=== PATIENT | female | born 1955 | race Caucasian/White ===

== ENCOUNTER 2018-11-27 06:21 | Inpatient (IN) | payer BC ==
[~2018-11-27] VITALS: Ht 157.5 cm; Wt 80.0 kg
[2018-11-27] VITALS (23 sets, daily range): BP systolic 117–186; BP diastolic 55–91; PULSE 72–114; RESP 10–21; Ht 157.5 cm; Wt 80.0 kg
[2018-11-27] MEDS ORDERED: SEVOFLURANE 15 MIN ONE (07:00)
[2018-11-27] MEDS ORDERED: LIDOCAINE 0.5% (MDV) 50 ML INJ ONE (07:07)
[2018-11-27] MEDS ORDERED: THROMBIN (BOVINE) 5,000 UNIT VIAL TP ONE (07:07)
[2018-11-27] MEDS ORDERED: BUPIVACAINE 0.5%/EPI (SDV) 30 ML INJ ONE (07:07)
[2018-11-27] MEDS ORDERED: POLYMYXIN/BACITRACIN 1L IRRIG ONE (07:07)
--- NOTE | 2018-11-27 07:23 | PREAC ---
Date/Time of Note Date/Time of Note DATE: 11/27/18 TIME: 07:20 Anesthesia Eval and Record Evaluation Time Pre-Procedure Interview DATE: 11/27/18 TIME: 07:20 Age 63 Sex female NPO: 8 hrs Preoperative diagnosis spondylolisthesis and spinal stenosis L4-L5, L5-S1 Planned procedure L4-L5, L5-S1 TLIF Past Medical History Past Medical History: Includes Cardio: HTN Endo: Diabetes Psych: Anxiety Infection(s): Hep C Surgery & Anesthesia Issues No known issue Meds Anticoagulation: No Beta Dwight within 24 hr: No Reason Beta Dwight not given: Pt. not on B-Dwight Meds reviewed: Yes Allergies Allergies Reviewed: Yes Labs/Studies Labs Reviewed: Reviewed by anesthesiologist test: N/A Studies: ECG (normal sinus rhythm), CXR (no acute disease ) Pre-procedure Exam Airway: Adequate mouth opening, Adequate thyromental dist Mallampati: Mallampati II Teeth: Abnormal (upper partials) Lung: Normal Heart: Normal ASA Physical Status ASA physical status: 2 Emergency: None Planned Anesthetic General/MAC: ETT Planned Pain Management Parenteral pain med Pre-operative Attestations Prior to commencing anesthesia and surgery, the patient was re-evaluated, there was verification of: *The patient's identity *The results of appropriate recent lab work and preoperative vital signs *The above evaluation not changing prior to induction *Anesthetic plan, risk benefits, alternative and complications discussed with patient/family; questions answered; patient/family understands, accepts and wishes to proceed. NICKO NICOLAS MD Nov 27, 2018 07:23
[2018-11-27] MEDS ORDERED: LOSA50TA2 PO (07:35)
[2018-11-27] MEDS ORDERED: CLON-379 PO (07:36)
[2018-11-27] MEDS ORDERED: GABA300C16 PO (07:38)
[2018-11-27] MEDS ORDERED: GLYB5TAB3 PO (07:39)
[2018-11-27] MEDS ORDERED: TRAM50TA2 PO (07:41)
[2018-11-27] MEDS ORDERED: HYDR-4012 PO (07:42)
[2018-11-27] MEDS ORDERED: PROPOFOL 20 ML ONE (07:51)
[2018-11-27] MEDS ORDERED: ROCURONIUM 50 MG INJ ONE (07:51)
[2018-11-27] MEDS ORDERED: LIDOCAINE 2% (SDV) 5 ML INJ ONE (07:51)
[2018-11-27] MEDS ORDERED: MIDAZOLAM 1 MG/ML 2 ML INJ ONE (07:51)
[2018-11-27] MEDS ORDERED: SUCCINYLCHOLINE CHLORIDE 100 MG/5 ML SYG IV ONE (07:51)
--- NOTE | 2018-11-27 08:02 | HPN ---
Date/Time of Note Date/Time of Note DATE: 11/27/18 TIME: 08:01 Interval H&P Admission Note Pt. seen H&P reviewed: No system changes Intractable right lower Extremity radiating pain and numbness with weakness and Axial LBP. Patient's family at bedside including daughter and grandchildren. SONAL CALLOWAY MD Nov 27, 2018 08:02
[2018-11-27] MEDS ORDERED: CEFAZOLIN 1 GM INJ ONE (09:06)
[2018-11-27] MEDS ORDERED: ONDANSETRON 4 MG INJ ONE (09:07)
[2018-11-27] MEDS ORDERED: FAMOTIDINE 20 MG INJ ONE (09:07)
[2018-11-27] MEDS ORDERED: EPHEDrine 25 MG/5 ML SYG ONE (09:12)
[2018-11-27] MEDS ORDERED: HEMOSTATIC MATRIX/ THROMBIN 1 EA SYG ZFS ONE ×2 (09:53→15:50)
[2018-11-27] MEDS ORDERED: HYDROmorphONE 2 MG/ML SYG ONE (12:01)
[2018-11-27] MEDS ORDERED: GELATIN SIZE 100 SPONGE ONE (13:54)
[2018-11-27] MEDS ORDERED: NALOXONE (0.4 MG/ML) INJ IV PRN (15:30)
[2018-11-27] MEDS ORDERED: D5W-0.45 NACL + KCL 20 MEQ 1,000 ML IV SCH (15:30)
[2018-11-27] MEDS ORDERED: BISACODYL 10 MG SUPP PR PRN (15:30)
--- NOTE | 2018-11-27 15:44 | SIPON ---
Date/Time of Note Date/Time of Note DATE: 11/27/18 TIME: 15:43 Operative Report Preoperative Diagnosis L4-5 Grade II Spondylilisthesis, L4-5/L5-S1 DDD and foraminal stenosis Postoperative Diagnosis Same As above Operation/Procedure Performed MIS L4-5/L5-S1 TLIF Surgeon see signature line grants assistant None Anesthesia: general Estimated blood loss: 50 - 100 ml's (75cc) Transfusion Required none Specimen None Grafts/Implants See OP report Complications none SONAL CALLOWAY MD Nov 27, 2018 15:44
[2018-11-27] MEDS ORDERED: HYDROmorphONE 1 MG/5 ML IV SYRINGE IV ONE (15:45)
[2018-11-27] MEDS ORDERED: ONDANSETRON 4 MG INJ IV PRN (16:00)
[2018-11-27] MEDS ORDERED: FENTAnyl 50 MCG/ML VIAL IV PRN ×2 (16:00)
[2018-11-27] MEDS ORDERED: PROCHLORPERAZINE 10 MG INJ IV PRN (16:00)
[2018-11-27] MEDS ORDERED: MEPERIDINE 25 MG INJ IV PRN (16:00)
[2018-11-27] MEDS ORDERED: HYDROCODONE/APAP (10/325) TAB PO SCH (16:00)
[2018-11-27] MEDS ORDERED: ACETAMINOPHEN 1000MG/100ML IV 100 ML IVPB ONE ×2 (16:00)
[2018-11-27] MEDS: traMADol 50 MG TAB PO SCH ×2 (16:00→21:55)
[2018-11-27] MEDS ORDERED: LABETALOL HCL 20MG INJ IV PRN (16:00)
[2018-11-27] MEDS ORDERED: HYDROmorphONE 1 MG/ML SYG IV ONE (16:00)
[2018-11-27] MEDS ORDERED: hydrALAzine 20 MG INJ IV PRN (16:00)
[2018-11-27] MEDS ORDERED: DIPHENHYDRAMINE 50 MG INJ IV PRN (16:00)
[2018-11-27] MEDS ORDERED: HYDROmorphONE 1 MG/5 ML IV SYRINGE IV PRN ×3 (16:00)
[2018-11-27] MEDS ORDERED: HYDROmorphONE 1 MG/ML SYG ONE (16:01)
--- NOTE | 2018-11-27 16:02 | PAC ---
Date/Time of Note Date/Time of Note DATE: 11/27/18 TIME: 16:00 Post-Anesthesia Notes Post-Anesthesia Note Last documented vital signs Vital Signs Date Temp Pulse Resp B/P (MAP) Pulse Ox O2 O2 Flow FiO2 Time Delivery Rate 11/27/18 97.9 15:49 11/27/18 76 144/82 98 Room Air 07:28 (102) Activity: WNL Respiratory function: WNL Cardiovascular function: WNL Mental status: Baseline Pain reasonably controlled: Yes Hydration appropriate: Yes Nausea/Vomiting absent: Yes Comments BP: 136/89 HR: 98 RR: 15 T: 97.9 SaO2: 100% NICKO NICOLAS MD Nov 27, 2018 16:02
[2018-11-27] MEDS ORDERED: LORAZEPAM 2 MG INJ ONE (16:03)
[2018-11-27] MEDS: FENTAnyl 50 MCG/ML VIAL IV PRN ×2 (16:27→16:49)
[2018-11-27] MEDS ORDERED: GLUCOSE GEL 15 GRAM TUBE PO PRN ×2 (16:30)
[2018-11-27] MEDS ORDERED: LORAZEPAM 2 MG INJ IV PRN (16:30)
[2018-11-27] MEDS ORDERED: DEXTROSE 50% 50 ML SYRINGE IV PRN ×2 (16:30)
[2018-11-27] MEDS ORDERED: GLUCOSE GEL 15 GRAM TUBE BUCCAL PRN (16:30)
[2018-11-27] MEDS ORDERED: GLUCAGON 1 MG INJ IM PRN (16:30)
[2018-11-27] MEDS: CEFAZOLIN 1 GM/50 ML (PMX) 50 ML IVPB SCH (17:01)
[2018-11-27] MEDS: ACCU-CHEK XX SCH ×2 (17:25→21:00)
[2018-11-27] MEDS: HYDROmorphONE 0.5 MG/0.5 ML SYG IV PRN ×4 (18:00→23:03)
[2018-11-27] MEDS: OXYCODONE/ACETAMINOPHEN (10/325) TAB PO SCH ×2 (18:00→19:10)
[2018-11-27] MEDS: CYCLOBENZAPRINE 10 MG TAB PO PRN (20:12)
[2018-11-27] MEDS: GABAPENTIN 300 MG CAP PO SCH (20:12)
[2018-11-27] MEDS: DOCUSATE SODIUM 100 MG CAP PO SCH (20:13)
[2018-11-27] MEDS: ONDANSETRON 4 MG INJ IV PRN (21:56)
[2018-11-27] MEDS: INSULIN ASPART [NOVOLOG] 3 ML PEN SC SCH (22:00)
[2018-11-28] MEDS: OXYCODONE/ACETAMINOPHEN (10/325) TAB PO SCH ×5 (00:08→23:09)
[2018-11-28] MEDS: CEFAZOLIN 1 GM/50 ML (PMX) 50 ML IVPB SCH ×2 (00:08→08:46)
[2018-11-28 00:10] VITALS: BP 132/65; PULSE 94; RESP 17
[2018-11-28] MEDS: ACCU-CHEK XX SCH ×5 (00:35→20:52)
[2018-11-28] MEDS: HYDROmorphONE 0.5 MG/0.5 ML SYG IV PRN ×8 (01:46→18:50)
[2018-11-28 02:00] VITALS: BP 120/64; PULSE 99; RESP 19
[2018-11-28] MEDS: CYCLOBENZAPRINE 10 MG TAB PO PRN (03:06)
[2018-11-28] MEDS: ONDANSETRON 4 MG INJ IV PRN ×2 (04:08→12:19)
[2018-11-28] MEDS: traMADol 50 MG TAB PO SCH ×4 (04:08→20:26)
[2018-11-28 04:31] VITALS: BP 123/66; PULSE 91; RESP 17
[2018-11-28] MEDS: PANTOPRAZOLE 40 MG INJ IV SCH (06:05)
[2018-11-28 07:35] VITALS: BP 118/56; PULSE 87; RESP 17
[2018-11-28] MEDS: INSULIN ASPART [NOVOLOG] 3 ML PEN SC SCH ×4 (07:50→20:25)
[2018-11-28] MEDS: glyBURIDE 5 MG TAB PO SCH ×2 (08:44→17:49)
[2018-11-28] MEDS: DOCUSATE SODIUM 100 MG CAP PO SCH ×2 (08:44→20:25)
[2018-11-28] MEDS: GABAPENTIN 300 MG CAP PO SCH ×2 (08:45→20:25)
[2018-11-28] MEDS: LOSARTAN 50 MG TAB PO SCH (08:46)
--- NOTE | 2018-11-28 09:17 | PN ---
Date/Time of Note Date/Time of Note DATE: 11/28/18 TIME: 09:11 Subjective Chart was reviewed. Patient complains of moderate pain at the surgical site, right lower extremity numbness and weakness. The numbness was present prior to surgery. Afebrile vital signs are stable Neck supple no JVD Lungs are clear to auscultation bilaterally Cardiac is regular rate and rhythm Abdomen is soft nontender nondistended Extremities with no edema. SCDs are in place Right lower extremity with 4 out of 5 strength. Left lower extremity with normal strength. Objective Vitals Vital Signs Date Temp Pulse Resp B/P (MAP) Pulse Ox O2 O2 Flow FiO2 Time Delivery Rate 11/28/18 98.6 87 17 118/56 94 07:35 (76) 11/28/18 Nasal 04:31 Cannula 11/27/18 2.0 19:52 Intake and Output 11/27/18 11/27/18 11/28/18 1414:59 22:59 06:59 IntakeIntake Total 3100 ml 350 ml OutputOutput Total 300 ml 1000 ml BalanceBalance 2800 ml -650 ml Medications Medications Current Medications Influenza Virus Vaccine Quadrival (Fluzone) 0.5 ml ONCE ONCE IM* ; Start 11/29/18 at 10:00; Stop 11/29/18 at 10:01 Clonidine (Catapres) 0.1 mg Q8 PRN PO ELEVATED BLOOD PRESSURE; Start 11/27/18 at 15:30; Status UNV Gabapentin (Neurontin) 300 mg BID PO Last administered on 11/28/18at 08:45; Admin Dose 300 MG; Start 11/27/18 at 21:00 Glyburide (Micronase) 5 mg BID WITH MEALS PO Last administered on 11/28/18at 08:44; Admin Dose 5 MG; Start 11/28/18 at 07:50 Losartan Potassium (Cozaar) 50 mg DAILY PO Last administered on 11/28/18at 08:46; Admin Dose 50 MG; Start 11/28/18 at 09:00 Diagnostic Test (Pha) (Accu-Chek) 1 ea AC MEALS AND BEDTIME XX Last administered on 11/28/18at 08:40; Admin Dose 1 EA; Start 11/27/18 at 17:25 Tramadol HCl (Ultram) 100 mg Q6H PO Last administered on 11/28/18at 04:08; Admin Dose 100 MG; Start 11/27/18 at 16:00 Hydromorphone HCl (Dilaudid) 0.2 mg Q1H PRN IV .BREAKTHROUGH PAIN Last administered on 11/28/18at 07:57; Admin Dose 0.2 MG; Start 11/27/18 at 15:30 Ondansetron HCl (Zofran Inj) 4 mg Q6H PRN IV NAUSEA/VOMITING Last administered on 11/28/18at 04:08; Admin Dose 4 MG; Start 11/27/18 at 15:30 Bisacodyl (Dulcolax Supp) 10 mg DAILY PRN CO .CONSTIPATION; Start 11/27/18 at 15:30 Docusate Sodium (Colace) 100 mg BID PO Last administered on 11/28/18at 08:44; Admin Dose 100 MG; Start 11/27/18 at 21:00 Pantoprazole (Protonix Iv) 40 mg DAILY@06 IV Last administered on 11/28/18at 06:05; Admin Dose 40 MG; Start 11/28/18 at 06:00 Cyclobenzaprine HCl (Flexeril) 10 mg TID PRN PO .MUSCLE SPASMS Last administered on 11/28/18at 03:06; Admin Dose 10 MG; Start 11/27/18 at 15:30 Naloxone HCl (Narcan) 0.2 mg Q2M PRN IV .RR 8 BREATHS/MIN OR LESS; Start 11/27/18 at 15:30 Miscellaneous Information 1 ea NOTE XX ; Start 11/27/18 at 16:30 Glucose (Glutose) 15 gm Q15M PRN PO DECREASED GLUCOSE; Start 11/27/18 at 16:30 Glucose (Glutose) 22.5 gm Q15M PRN PO DECREASED GLUCOSE; Start 11/27/18 at 16:30 Dextrose (D50w Syringe) 25 ml Q15M PRN IV DECREASED GLUCOSE; Start 11/27/18 at 16:30 Dextrose (D50w Syringe) 50 ml Q15M PRN IV DECREASED GLUCOSE; Start 11/27/18 at 16:30 Glucagon (Glucagen) 1 mg Q15M PRN IM DECREASED GLUCOSE; Start 11/27/18 at 16:30 Glucose (Glutose) 15 gm Q15M PRN BUCCAL DECREASED GLUCOSE; Start 11/27/18 at 16:30 Oxycodone/ Acetaminophen (Endocet (10 325)) 2 tab Q6H PO Last administered on 11/28/18at 06:05; Admin Dose 2 TAB; Start 11/27/18 at 18:00 Diagnostic Test (Pha) (Accu-Chek) 1 02 XX ; Start 11/28/18 at 02:00 Insulin Aspart (Novolog Insulin Pen) NOVOLOG *MODERATE* ALGORITHM WITH MEALS BEDTIME SC ; Start 11/27/18 at 22:00 VTE Prophylaxis Risk score (from Ns)>0 risk: 2 SCD applied (from [facility]): Yes Lines/Catheters IV Catheter Type: Saline Lock Winslow in Place: Yes Cont'd winslow catheter reason: other (indicate) (Winslow will be removed) Assessment/Plan Assessment/Plan 63-year-old female status post L4-L5 and L5-S1 TLIF Type 2 diabetes mellitus Status post hip replacement Increase Dilaudid to 0.5 mg IV every 2 hours as needed Discontinue Winslow catheter Ambulate with physical therapy Neurosurgical follow-up Discharge planning in ARNALDO Bloom MD Nov 28, 2018 09:17
--- NOTE | 2018-11-28 12:28 | OPR ---
Date/Time of Note Date/Time of Note DATE: 11/28/18 TIME: 12:26 Operative Report Procedure Date: Nov 27, 2018 Preoperative Diagnosis Please see below. Postoperative Diagnosis Please see below. Operation/Procedure Performed Please see below. Surgeon see signature line Storage Engineer None Anesthesia Type: general Estimated Blood Loss: 50 - 100 ml's (75cc) Transfusion none Specimen None Grafts/Implants Please see below. Tubes/Drains None Complications none Pt Condition Post Procedure: stable Disposition: PACU Procedure Description Date of operation: 11/27/2018 Operating surgeon: Ran Calloway M.D. Preoperative diagnosis: 1. Grade 2 L4-5 spondylolisthesis 2. L4-5 and L5-S1 degenerative disc disease with neural foraminal Post operative diagnosis: 1. Grade 2 L4-5 spondylolisthesis 2. L4-5 and L5-S1 degenerative disc disease with neural foraminal Procedure(s) performed: 1. Minimally invasive right L4 and L5 decompressive hemilaminectomy (more laminectomy done than would be required for a simple transforaminal lumbar interbody arthrodesis) 2. Minimally invasive right total L4-5 and L5-S1 facetectomy and foraminotomies for transforaminal lumbar interbody arthrodesis 3. Placement of intravertebral cages at L4-5 and L5-S1 (Wensel Spine Verilift titanium 12 mm expandable to 13 mm height, 28 mm depth TLIF cages) 4. L4-S1 minimally invasive posterior instrumentation please for an (RTI [place] cannulated pedicle screws, 6.5 mm diameter at bilateral L4 and left L5, 7.5 mm diameter at bilateral S1 pedicles) 5. L4-S1 posterior arthrodesis 6. Bone marrow aspirate harvest 7. Morselized local autologous bone graft harvest 8. Morcellized allograft placement (demineralized bone matrix putty) 9. Intraoperative microscope with microdissection 10. Intraoperative fluoroscopy with professional interpretation 11. Intraoperative physiologic monitoring including SSEP, MEP, and EMG testing Indication for procedure: This is a 63-year-old female with chronic axial low back pain and radiating right lower extremity pain and numbness in the L4, L5 versus S1 distribution. The patient previously underwent a minimally invasive decompressive lumbar laminectomy and foraminotomy approximately 2 years ago for the treatment of the right lower extremity pain. The patient had significant improvement of the right lower extremity radiating pain for approximately a year but she developed recurrent symptomatology. The patient has undergone extensive conservative management without significant improvement of her pain. The patient's right lower extremity pain and to a lesser extent axial low back pain has become excruciating over time. She was found to have the above image findings. The risks and benefits of the above surgery versus continued observation and conservative management were discussed in detail with the patient in the clinic setting as well as in the preoperative area again together with the patient's family including her daughter. The patient and her daughter fully understood the above discussion and wished to proceed with the above surgery. Description of operative procedure: Patient was brought to the operating room and after general anesthesia was obtained, was placed prone on top of the open Ronny table. Her arms were abducted less than 90 and placed in superman position. All pressure points were noted and padded appropriate. The midline lumbar spine was marked. Then the vertical paraspinal line approximately 4-1/2 cm lateral to midline on each side was marked. After the skin was prepped and draped under standard sterile fashion, the spinal needle was inserted along the marked paraspinal lines under a combination of AP and lateral fluoroscopy and the entry points to the L4, L5 and S1 pedicles was located. Then a linear incision connecting the entry points of the spinal needle was marked over each of the paraspinal lumbar lines. Local anesthetic infiltrated into the marked incisions. The skin was then incised down to the lower the fascia. The Jamshidi needle was used in order to cannulate the pedicles from L4-S1 under combination of AP and lateral fluoroscopy. When the tip of the Jamshidi needle was at the pedicle vertebral body junction, another AP fluoroscopy was taken to confirm that the medial wall of the pedicle was not breached. Then the Jamshidi needle was slightly advanced into the vertebral body under direct lateral fluoroscopy. At the S1 level, lateral fluoroscopy was used to point the tip of the Jamshidi needle towards the sacral promontory. Bone marrow aspirate was harvested at each level. The Jamshidi needles were then exchanged with K wires. The K wires were stimulated and EMG was recorded and none of the recording thresholds were less than 20 mA. Appropriate size cannulated pedicle screws were then inserted on the left side under direct lateral fluoroscopy achieving good bony purchase. At the S1 level bicortical purchase was achieved at the sacral promontory. No screws were placed on the right side yet and the K wires were bent to the side and stapled to the drapes. The sharp K wire was then inserted under direct lateral fluoroscopy and placed over the right L4-5 facet complex. Thera tube dilators were inserted in the posterior soft tissue was dissected off the facet complex. The final working tube was inserted under direct lateral fluoroscopy, medialized and kept parallel to the L4-5 disc space with the obvious grade 2 spondylolisthesis that was not reduced yet. The tube was then fixed to the table in that position. The operating microscope was brought into the field. The posterior soft tissue was denuded off the facet complex. There was severe facet hypertrophy and arthropathy noted. The synovium was completely coagulated. Using a combination of the high-speed drill, Kerrison rongeurs and curettes we then performed a total right L4-5 facetectomy, foraminotomy and decompressive right L4 hemilaminectomy. All the bone was harvested for later grafting. The right L4-5 foramen was completely unroofed. The exiting nerve root that was still kept covered and protected by its fat was under severe pressure and was completely decompressed. The annulus was then cut in a box like fashion. The discectomy work was then done using serial nonaggressive heather to protect the endplates. The endplates were decorticated. The disc space was copiously irrigated with antibiotic solution. Then the Verilift appropriate size trial was inserted under direct lateral fluoroscopy. The verilift implant was then inserted under direct lateral fluoroscopy, medialized and countersunk. It was then fully expanded under direct lateral fluoroscopy showing excellent distraction of the disc space and partial reduction of the spondylolisthesis. The combination of the locally harvested autologous morcellized bone, bone marrow aspirate and the demineralized bone matrix allograft putty was then inserted through the specialized final into the cage and packed in situ. Then the final locking sc rew was inserted into the cage and tightened. The neuroforamen was then protected with several pieces of Gelfoam with thrombin. The remaining biologic material was placed over the neuroforamen for posterior arthrodesis. The same set of procedures was done in order to access the right L5-S1 facet complex and the disc space. Total right L5-S1 facetectomy, foraminotomies and a dec ompressive right L5 hemilaminectomy was done in the same fashion as the L4-5 level. The exiting L5 nerve root was fully decompressed. L5-S1 discectomy, disc preparation and endplate decortication same as L4-5 level was done. After using the appropriate trial, same size TLIF expandable cage was inserted under direct lateral fluoroscopy and countersunk and medialized. The case was fully expanded same as L4-5 level and packed with the same combination of biologic material as L4-5. The final locking screw was inserted and fully tightened. The neuroforamen was protected with several pieces of Gelfoam with thrombin. The remaining biologic material was placed over the neuroforamen for posterior arthrodesis. The tube was then removed. Minimally invasive pedicle screws were placed at the right L4 and S1 level under direct lateral fluoroscopy with good purchase. We attempted to insert a pedicle screw also at right L5 level but the screw would not fully engage the previous cannulation despite the wire being in place. We attempted to start with a new entry point under a combination of AP fluoroscopy with the Jamshidi needle but it was very difficult to cannulate the right L5 pedicle as it was not well visualized. In order to be safe, especially given the fact that the right L4-5 and right L5-S1 neural foramen was completely unroofed and the facets were completely removed, we decided not to put a screw at the L5 level. Appropriate size rods were then measured and were percutaneously inserted. We first tightened the left L5 and S1 set screws fully and fully reduced at the L4-5 level in turn fully reducing the L4-5 spondylolisthesis. The set screws were fully tightened with a torque and counter torque wrench devices. The set screw over the right S1 level was then fully tightened and the right L4 screw was then fully reduced onto the hong. The set screws on this side were also fully tightened with a torque and counter torque wrench device. The final AP and lateral x-ray showed good positioning of the hardware and the full reduction of the patient's L4-5 spinal listhesis. The wounds were copiously irrigated with antibiotic solution. The muscle and fascial layers were reapproximated with interrupted sutures. The dermal area was reapproximated with sutures. The skin was reapproximated with Dermabond. A sterile dressing was placed on top of each of the incisions. The intraoperative neurophysiologic signals were stable throughout the procedure. The patient was then placed supine on the hospital bed. She was working out, extubated and transported to the recovery room in stable condition. The patient was awake and alert and moving her upper and lower extremities equally proximally and distally including knee extension, ankle dorsiflexion and plantar flexion to command in the recovery room. Estimated blood loss: 75 cc Blood products administered: None Packs/drains: None Type of anesthesia: General Incision: Bilateral paraspinal lumbar Skin closure: Dermabond Wound classification: Clean Specimen removed: None Patient's condition: Stable Prognosis: Good RAN CALLOWAY MD Nov 28, 2018 12:28
[2018-11-28 14:00] VITALS: BP 115/60; PULSE 77; RESP 18
[2018-11-28 19:31] VITALS: BP 93/56; PULSE 123; RESP 18
--- NOTE | 2018-11-28 21:41 | PN ---
Date/Time of Note Date/Time of Note DATE: 11/28/18 TIME: 21:40 Assessment/Plan Assessment/Plan Date of progress note: 11/28/2018 The patient is postop day 1 status post minimally invasive L4-5 and L5-S1 transforaminal lumbar interbody fusion with posterior instrumented fusion. The patient's preoperative severe radiating right lower extremity pain has now fully resolved. The patient has some expected postoperative surgical pain in the low back area that is being controlled with pain medications. The patient has already been able to take several steps around her room today and has been able to void spontaneously. She is tolerating some liquids and soft diet. She has some numbness involving the dorsum of the right foot that was present preoperatively. On exam, the patient is awake alert and oriented 4. She looks comfortable. Her 2 lumbar paraspinal incisions are clean dry and intact with dressing. Motor strength on the left lower extremity is 5- out of 5 proximally and distally and on the right proximally and distally is at least 4+ out of 5 and somewhat limit ed secondary to low back pain. From a neurosurgical perspective, the patient may be discharged home tomorrow. Her daughter who is from out of town and will be staying with her at home for the first night and the patient has made arrangements with other friends to be staying with her for the next several days for assistance. The patient may shower starting tomorrow. She is to keep her incisions clean dry and intact. The dressings may be removed on . She is to follow-up with Dr. Calloway's clinic in 2-3 weeks. She is to avoid use of NSAID medications e.g. ibuprofen, Motrin, Advil, Aleve etc. 3-4 months. Activity is as tolerated. She is to avoid lifting more than 20-25 pounds and to avoid excessive bending and twisting at the waist. She is to wear the LSO brace when up and ambulating for the next 3 weeks. SONAL CALLOWAY MD Nov 28, 2018 21:41
[2018-11-28] MEDS ORDERED: BACLOFEN 10 MG TAB PO PRN (22:00)
[2018-11-29] MEDS: HYDROmorphONE 0.5 MG/0.5 ML SYG IV PRN ×4 (00:45→15:35)
[2018-11-29 01:27] VITALS: BP 98/53; PULSE 109; RESP 16
[2018-11-29] MEDS: ACCU-CHEK XX SCH ×4 (03:00→17:25)
[2018-11-29] MEDS: traMADol 50 MG TAB PO SCH ×3 (03:02→16:55)
[2018-11-29] MEDS: PANTOPRAZOLE 40 MG INJ IV SCH (05:01)
[2018-11-29] MEDS: OXYCODONE/ACETAMINOPHEN (10/325) TAB PO SCH ×2 (05:02→12:14)
[2018-11-29] MEDS: INSULIN ASPART [NOVOLOG] 3 ML PEN SC SCH ×2 (07:50→12:20)
[2018-11-29 08:30] VITALS: BP 116/56; PULSE 56; RESP 18
[2018-11-29] MEDS: DOCUSATE SODIUM 100 MG CAP PO SCH (08:37)
[2018-11-29] MEDS: glyBURIDE 5 MG TAB PO SCH (08:37)
[2018-11-29] MEDS: GABAPENTIN 300 MG CAP PO SCH (08:37)
[2018-11-29] MEDS: LOSARTAN 50 MG TAB PO SCH (08:38)
[2018-11-29] MEDS ORDERED: DIAZ5TAB4 PO (08:52)
--- NOTE | 2018-11-29 09:15 | PDOCDIS ---
Discharge Instructions DIAGNOSIS Discharge Diagnosis 64-year-old female status post L4-L5 and L5-S1 TLIF Hypertension Type 2 diabetes mellitus 63-year-old female with lumbar spondylosis and disc disease was electively admitted by Dr. Daniel. She underwent L4-L5, L5-S1 TLIF. There were no intraoperative or postoperative complications. Patient reported right lower extremity numbness which was present prior to surgery. She was able to walk around in the room with my assistance. Her pain is better controlled. Her motor strength were intact in all extremities. Patient was wearing a lumbar brace. She is in a stable condition for discharge. Home health PT and toilet seat raiser were requested. I prescribed [place] and Valium to help her sleep at night. Patient will follow up with PCP and Dr. Daniel CONDITION [id number] Patient Condition: [id number] Good HOME CARE INSTRUCTIONS: [id number] Diet Instructions: [id number] Regular [id number] Special Diet: [id number] Diabetic ACTIVITY: [id number] Activity Restrictions: [id number] Slowly Increase Activity Rest between Activity Avoid heavy lifting Do not Drive Do not operate Machinery Do not operate Power Tool Avoid Heavy Housework [id number] Bathing Restrictions: [id number] Shower FOLLOW UP/APPOINTMENTS Follow-up Plan PCP [address] Daniel 1 week ARNALDO QUICK MD Nov 29, 2018 09:15
[2018-11-29] MEDS ORDERED: INFLUENZA VIRUS VACCINE 0.5 ML (DISPENSING) IM* ONE (10:00)
[2018-11-29 14:39] VITALS: BP 115/66; PULSE 101; RESP 18
== END 2018-11-29 18:00 | disposition home health service (06) | DRG 455 ==
LOC: REC 06:21 → MS1 17:17
PROVIDERS: ADMIT Neurological Surgery; ATTEND Neurological Surgery
PROC: 0SG0071 Fusion of Lumbar Vertebral Joint with Autologous Tissue Substitute, Posterior Approach, Posterior Column, Open Approach (ICD-10-PCS; 2018-11-27)
PROC: 0SG30AJ Fusion of Lumbosacral Joint with Interbody Fusion Device, Posterior Approach, Anterior Column, Open Approach (ICD-10-PCS; 2018-11-27)
PROC: 0SB40ZZ Excision of Lumbosacral Disc, Open Approach (ICD-10-PCS; 2018-11-27)
PROC: 0SB20ZZ Excision of Lumbar Vertebral Disc, Open Approach (ICD-10-PCS; 2018-11-27)
PROC: 0SG3071 Fusion of Lumbosacral Joint with Autologous Tissue Substitute, Posterior Approach, Posterior Column, Open Approach (ICD-10-PCS; 2018-11-27)
PROC: 07DS3ZZ Extraction of Vertebral Bone Marrow, Percutaneous Approach (ICD-10-PCS; 2018-11-27)
PROC: 4A11X4G Monitoring of Peripheral Nervous Electrical Activity, Intraoperative, External Approach (ICD-10-PCS; 2018-11-27)
PROC: 0SG00AJ Fusion of Lumbar Vertebral Joint with Interbody Fusion Device, Posterior Approach, Anterior Column, Open Approach (ICD-10-PCS; principal; 2018-11-27 07:30)
DX: M43.16 Spondylolisthesis, lumbar region (principal); E11.9 Type 2 diabetes mellitus without complications; M48.061 Spinal stenosis, lumbar region without neurogenic claudication; I10 Essential (primary) hypertension; M48.07 Spinal stenosis, lumbosacral region; Z96.649 Presence of unspecified artificial hip joint; Z86.19 Personal history of other infectious and parasitic diseases
CPT/HCPCS: 72114; 81003; 82962; 87086; 90686; 97110; 97116; 97162; 97530; C1713; C9113; J0131; J0690; J1170; J1815; J2060; J2175; J2250; J2405; J3010; J3480

== ENCOUNTER 2018-12-09 07:07 | Emergency (ER) | payer BC ==
[~2018-12-09] VITALS: Ht 167.6 cm; Wt 75.0 kg
[~2018-12-09 07:07] MED LIST: CLON-379 PO; DIAZ5TAB4 PO; GABA300C16 PO; GLYB5TAB3 PO; HYDR-4012 PO; LOSA50TA2 PO; TRAM50TA2 PO
[2018-12-09 07:13] VITALS: Ht 167.6 cm; Wt 75.0 kg
--- NOTE | 2018-12-09 07:39 | ERD ---
ER Documentation Chief Complaint Chief Complaint Complains of right lower extremity pain radiates to the leg HPI 64-year-old female, with history of chronic back pain status post back surgery 12 days ago, presents to the emergency department, complaining of right lower extremity pain, 03/14. The patient denies chest pain, no shortness of breath. ROS All systems reviewed and are negative except as per history of present illness. Medications Home Meds Active Scripts Hydroxyzine Hcl* (Hydroxyzine Hcl*) 50 Mg Tablet, 50 MG PO QHS PRN for ANXIETY, #30 TAB Prov:EZEKIEL REGAN MD 12/09/18 Ketorolac Tromethamine* (Ketorolac Tromethamine*) 10 Mg Tablet, 10 MG PO TID, #30 TAB Prov:EZEKIEL REGAN MD 12/09/18 Diazepam* (Diazepam*) 5 Mg Tablet, 5 MG PO QHS, #10 TAB Prov:ARNALDO QUICK MD 11/29/18 Reported Medications Hydrocodone/Acetaminophen ([place] 7.5-325 Tablet) 1 Each Tablet, 1 EACH PO BID PRN for PAIN LEVEL 6-10, TAB 11/27/18 Tramadol HCl (Tramadol HCl) 50 Mg Tablet, 50 MG PO BID PRN for PAIN LEVEL 1-5, #60 TAB 11/27/18 Glyburide* (Glyburide*) 5 Mg Tablet, 5 MG PO BID, #60 TAB 11/27/18 Gabapentin* (Gabapentin*) 300 Mg Capsule, 300 MG PO BID, #60 CAP 11/27/18 Clonidine Hcl* (Clonidine Hcl*) 0.1 Mg Tab, 0.1 MG PO Q8 PRN for ELEVATED BLOOD PRESSURE, TAB 11/27/18 Losartan Potassium* (Cozaar*) 50 Mg Tablet, 50 MG PO DAILY, #30 TAB 11/27/18 Allergies Allergies: Coded Allergies: No Known Allergy (Unverified , 11/27/18) PMhx/Soc History of Surgery: Yes (CARPAL TUNNEL RELEASE) Anesthesia Reaction: No Hx Neurological Disorder: No Hx Respiratory Disorders: No Hx Psychiatric Problems: No Hx Miscellaneous Medical Probl: Yes (See technical record) Hx Alcohol Use: No Hx Substance Use: No Hx Tobacco Use: No FmHx Family History: No diabetes, No coronary disease Physical Exam Vitals Vital Signs Date Temp Pulse Resp B/P (MAP) Pulse Ox O2 O2 Flow FiO2 Time Delivery Rate 12/09/18 98.3 82 18 132/71 99 Room Air 08:59 (91) 12/09/18 98.0 99 20 148/68 99 07:13 (94) Physical Exam Const: No acute distress Head: Atraumatic Eyes: Normal Conjunctiva ENT: Normal External Ears, Nose and Mouth. Neck: Full range of motion. No meningismus. Resp: Clear to auscultation bilaterally Cardio: Regular rate and rhythm, no murmurs Abd: Soft, non tender, non distended. Normal bowel sounds Skin: No petechiae or rashes Back: No midline or flank tenderness Ext: No cyanosis, or edema Neur: Awake and alert Psych: Normal Mood and Affect Results 24 hrs Current Medications Medications Dose Sig/Sam[place] Start Time Status Last (Trade) Ordered Route PRN Stop Time Admin Dose Reason Admin Ketorolac 30 mg ONCE STAT 12/09/18 DC 12/09/18 Tromethamine IM 07:44 12/09/18 07:57 (Toradol) 07:46 Procedures/MDM Acute right leg pain: no red flags. Differential diagnosis include but not limited to: Musculoskeletal injury, arthritis, fracture, DVT; low suspicion for acute limb ischemia, septic arthritis, necrotizing fasciitis, compartment syndrome. Neurovascular exam grossly intact. no clinical findings suggestive of acute infectious process, no acute deformity, no edema, no rashes. Pertinent Data: Doppler ultrasound: negative for DVT Physical examination and clinical presentation consistent most likely with chronic pain. During the ED course the patient received treatment with Toradol IM presenting overall improvement of the symptoms. Results and clinical impression discussed with the patient who agrees with management. The patient is stable to be treated outpatient and will be discharged home with recommendations for ice, rest and NSAIDs 3 times daily for 5 days and close monitoring. The patient was instructed to follow up with the primary care provider in the next 48h. If symptoms persist, worsen or new symptoms develop, then patient should return to the ED immediately. Instructions explained and given to patient with acknowledgment and demonstrated understanding. Disclaimer: Inadvertent spelling and grammatical errors are likely due to EHR/dictation software use and do not reflect on the overall quality of patient care. Also, please note that the electronic time recorded on this note does not necessarily reflect the actual time of the patient encounter. Departure Diagnosis: Primary Impression: Pain of right leg Additional Impressions: Use of opiates for therapeutic purposes History of back surgery Condition: Stable Additional Instructions: Thank you very much for allowing us to participate in your care. Your health and safety is our top priority at [facility]. Call your primary care doctor TOMORROW for an appointment during the next 2-4 days and bring all the information and medications prescribed. Have prescriptions filled and follow precisely the directions on the label. If the symptoms get worse and your provider is unavailable, return to the Emergency Department immediately. EZEKIEL REGAN MD Dec 09, 2018 07:39
[2018-12-09] MEDS ORDERED: KETOROLAC 30 MG INJ IM STA (07:44)
[2018-12-09] MEDS ORDERED: KETO10TA PO (07:49)
[2018-12-09] MEDS ORDERED: HYDR50TA15 PO (08:26)
[2018-12-09 08:59] VITALS: BP 132/71; PULSE 82; RESP 18
== END 2018-12-09 09:00 | disposition home or self-care (01) ==
LOC: FTE 07:07
DX: M79.604 Pain in right leg (principal); Z79.891 Long term (current) use of opiate analgesic; Z98.890 Other specified postprocedural states
CPT/HCPCS: 93971; J1885; 96372